=== PATIENT | male | born 1940 | race Two or more races ===

== ENCOUNTER 2024-10-18 07:43 | Outpatient (CLI) | payer OTHER | END 2024-10-18 07:47 | disposition home or self-care (01) | LOC: SONOGRAMA 07:43 | PROVIDERS: ATTEND Internal Medicine Gastroenterology | DX: R10.11 Right upper quadrant pain (principal) ==

== ENCOUNTER 2024-10-25 07:40 | Outpatient (CLI) | payer OTHER | END 2024-10-25 07:41 | disposition home or self-care (01) | LOC: TOM 07:40 | PROVIDERS: ATTEND Specialist | DX: K76.89 Other specified diseases of liver (principal) | CPT/HCPCS: 74177; Q9965 ==